=== PATIENT | female | born 1950 | race Caucasian/White ===

== ENCOUNTER → 2016-12-16 | Outpatient (CLI) | payer MEDICARE, OTHER ==
[~2016-12-16] MED LIST: ASPI-1116 PO; ATOR20TA59 PO; CARV3.123 PO; IOHEXOL 180 MG/ML 20ml INJECTION ONE; LEVO50TA72 PO; LIDOCAINE 1% (10mg/ml) 5ml VIAL ONE; LISI-625 PO; MULT-933 PO; MethylPREDNISolone ACETATE 40mg/1ml ONE; PANT20TA13 PO
--- NOTE | 2016-12-16 14:23 | DI ---
Indication:ITS.REASON: LOW BACK PAIN, BILATERAL BUTTOCK AND THIGH PAIN Procedure:EPIDURAL INJ.SPINE W FLUO CATH LUMBAR EPIDURAL INJECTION: The patient has low back and radicular pain. The patient has had a previous epidural that provided moderate relief. The details of the procedure, including the benefits, risks, and alternatives were explained to the patient. All of their questions were answered. They stated that they understood and wished to proceed. Informed consent was then obtained. A pre-procedural timeout was performed to confirm the correct patient and procedure. Utilizing aseptic technique, local lidocaine anesthetic, and fluoroscopic guidance throughout, a 22-gauge spinal needle was directed into the lumbar epidural space via an interlaminar approach at the L5-S1 level. Contrast was injected to assure proper positioning of the needle tip. A fluoroscopic image was then taken and archived. Subsequently, 120 mg Depo-Medrol was injected into the epidural space. The patient tolerated the procedure well. IMPRESSION: Successful lumbar epidural steroid injection. Fluoroscopy dose: 9.21 mGy (Cumulative air kerma) Castro Christy RPA/HAILE performed this under my personal supervision. .
== END ==
LOC: IMA 12:30
PROVIDERS: ATTEND Neurological Surgery
DX: M54.5 Low back pain (principal); M54.16 Radiculopathy, lumbar region
CPT/HCPCS: 62323; J1030; Q9965